=== PATIENT | male | born 1970 | race African-American/Black ===

== ENCOUNTER 2016-09-24 08:16 | Observation (INO) | payer SELFPAY ==
[~2016-09-24] VITALS: Ht 188 cm; Wt 124.0 kg
[~2016-09-24 08:16] MED LIST: AMOXICILLIN500 MG OR; AMOXIL500 MG OR; BACTRIM DS1 TAB OR; COZAAR50 MG OR; DEXILANT60 MG OR; DILAUDID 2MG2 MG/TA1 PO; DILTIAZEM240 MG PO; FLEXERIL5 MG PO; GABAPENTIN300 MG PO; GLIPIZIDE10 MG PO; GLIPIZIDE5 MG OR; GRALISE600 MG PO; LEVEMIR SC; LEVITRA10 MG OR; LOPRESSOR 550 MG/TAB PO; LOPRESSOR50 MG OR; LORTAB5 PO; METAN1 OR; METFORMIN1000 MG PO; METFORMIN500 MG PO; NAPROSYN500 MG PO; OPANA ER40 M1 PO; PERCOCET 5/325M1 TAB OR; PERCOCET1 TA5 PO; SYMBICORT1 AE1 IN; TESTIM1 % TD; TOFRANIL50 MG OR; TOPROL XL PO; ZESTRIL5 M1 OR; ZOCOR20 M1 PO; ZOCOR20 MG OR
[2016-09-24 09:05] LABS: HEMATOCRIT 43.1 % (39.0-50.0); HEMOGLOBIN 14.7 g/dl (14.0-18.0); IMMATURE GRANULOCYTES 0.2 % (0.0-1.0); MEAN CORPUSCULAR HGB 28.7 pG CALC (26.0-32.0); MEAN CORPUSCULAR HGB CONC 34.1 g/L CALC (32.0-36.0); NEUT# 3.67 thou/uL (1.82-7.42); RED BLOOD COUNT 5.13 mill/uL (4.70-6.10); RED CELL DISTRI WIDTH 13.2 % (11.5-15.5)
[2016-09-24 09:20] LABS: ALBUMIN 4.2 g/dL (3.2-5.0); ALKALINE PHOSPHATASE 72 u/l (38-126); ANION GAP 16 (6-22 (CALC)); BILIRUBIN, TOTAL 0.5 mg/dL (0.0-1.4); BUN 12 mg/dL (9-20); BUN/CREATININE RATIO 13 (12-20 (CALC)); CALCIUM 9.2 mg/dL (8.4-10.2); CARBON DIOXIDE 27 mmol/l (22-30); CHLORIDE 102 mmol/l (95-108); GFR > 60 ML/MIN (>=60 (CALC)); GFR FOR AFR.AMER. > 60 ML/MIN (>=60 (CALC)); GLUCOSE 138 mg/dL (75-110); SGOT/AST 23 u/l (17-59); SGPT/ALT 25 u/l (21-72); SODIUM 142 mmol/l (137-146); TOTAL PROTEIN 7.7 g/dL (6.3-8.2)
[2016-09-24 09:29] LABS: MYOGLOBIN 38 ng/mL (0 - 121)
[2016-09-24] MEDS ORDERED: LEVEMIR100 UNIT/M SC (09:57)
[2016-09-24 13:30] VITALS: BP 147/91
[2016-09-24 16:00] VITALS: BP 136/85
[2016-09-24] MEDS ORDERED: LOPRESSOR 550 MG/TAB PO (16:30)
[2016-09-24 18:58] VITALS: BP 147/84
[2016-09-24 23:30] VITALS: BP 132/82
[2016-09-25 04:12] VITALS: BP 148/88
[2016-09-25 07:40] VITALS: BP 134/68
[2016-09-25] MEDS ORDERED: ASPIRIN ADULT L81 M2 PO (10:16)
== END 2016-09-25 10:55 | disposition home or self-care (01) | DRG 311 ==
LOC: ENPENDDIS → ED 08:16 → ED-I 10:03 → ED 10:19 → MS2 10:20
PROVIDERS: Emergency Medicine; ADMIT Internal Medicine; ATTEND Internal Medicine
DX: I20.9 Angina pectoris, unspecified (principal); E11.40 Type 2 diabetes mellitus with diabetic neuropathy, unspecified; I10 Essential (primary) hypertension; E11.65 Type 2 diabetes mellitus with hyperglycemia; E78.5 Hyperlipidemia, unspecified; K21.9 Gastro-esophageal reflux disease without esophagitis; F17.290 Nicotine dependence, other tobacco product, uncomplicated; J45.909 Unspecified asthma, uncomplicated; Z79.4 Long term (current) use of insulin
CPT/HCPCS: G0378

== ENCOUNTER 2016-11-19 18:44 | Emergency (ER) | payer SELFPAY ==
[~2016-11-19] VITALS: Ht 188 cm; Wt 131.0 kg
[~2016-11-19 18:44] MED LIST changes: +ASPIRIN ADULT L81 M2 PO; +LEVEMIR100 UNIT/M SC
[2016-11-19 19:32] LABS: HEMATOCRIT 46.2 % (39.0-50.0); HEMOGLOBIN 15.9 g/dl (14.0-18.0); IMMATURE GRANULOCYTES 0.2 % (0.0-1.0); MEAN CELL VOLUME 82.1 fL CALC (80.0-100.0); MEAN CORPUSCULAR HGB 28.2 pG CALC (26.0-32.0); MEAN CORPUSCULAR HGB CONC 34.4 g/L CALC (32.0-36.0); NEUT# 4.18 thou/uL (1.82-7.42); RED BLOOD COUNT 5.63 mill/uL (4.70-6.10); RED CELL DISTRI WIDTH 13.5 % (11.5-15.5)
[2016-11-19 19:41] LABS: ALBUMIN 5.3 g/dL (3.2-5.0); ALKALINE PHOSPHATASE 75 u/l (38-126); ANION GAP 19 (6-22 (CALC)); BILIRUBIN, TOTAL 0.6 mg/dL (0.0-1.4); BUN 13 mg/dL (9-20); BUN/CREATININE RATIO 11 (12-20 (CALC)); CALCIUM 10.2 mg/dL (8.4-10.2); CARBON DIOXIDE 25 mmol/l (22-30); CHLORIDE 102 mmol/l (95-108); CREATININE 1.2 mg/dL (0.7-1.3); GFR > 60 ML/MIN (>=60 (CALC)); GFR FOR AFR.AMER. > 60 ML/MIN (>=60 (CALC)); GLUCOSE 86 mg/dL (75-110); POTASSIUM 4.1 mmol/l (3.5-5.1); SGOT/AST 26 u/l (17-59); SGPT/ALT 36 u/l (21-72); SODIUM 142 mmol/l (137-146); TOTAL PROTEIN 9.1 g/dL (6.3-8.2)
[2016-11-19 20:44] VITALS: BP 135/87
== END 2016-11-19 20:42 | DRG 935 ==
LOC: ED 18:44
PROVIDERS: Emergency Medicine
DX: T23.271A Burn of second degree of right wrist, initial encounter (principal); T22.112A Burn of first degree of left forearm, initial encounter; T24.232A Burn of second degree of left lower leg, initial encounter; T25.292A Burn of second degree of multiple sites of left ankle and foot, initial encounter; T25.111A Burn of first degree of right ankle, initial encounter; X10.2XXA Contact with fats and cooking oils, initial encounter; Y93.G3 Activity, cooking and baking; Y92.007 Garden or yard of unspecified non-institutional (private) residence as the place of occurrence of the external cause

== ENCOUNTER 2019-08-08 17:51 | Observation (INO) | payer MEDICARE ==
[~2019-08-08] VITALS: Ht 188 cm; Wt 127.0 kg
--- NOTE | 2019-08-08 17:51 | NUR ---
PATIENT TO ROOM VIA WHEELCHAIR AND PHYSICAIN AT BESIDE FOR EVAL
[2019-08-08 18:31] LABS: HEMATOCRIT 38.7 % (39.0-50.0); HEMOGLOBIN 13.1 g/dl (14.0-18.0); IMMATURE GRANULOCYTES 0.1 % (0.0-5.0); MEAN CELL VOLUME 84.5 fL CALC (80.0-100.0); MEAN CORPUSCULAR HGB 28.6 pG CALC (26.0-32.0); MEAN CORPUSCULAR HGB CONC 33.9 g/dL CAL (32.0-36.0); NEUT# 4.27 thou/uL (1.82-7.42); RED BLOOD COUNT 4.58 mill/uL (4.70-6.10); RED CELL DISTRI WIDTH 13.8 % (11.5-15.5)
[2019-08-08 18:49] LABS: ALKALINE PHOSPHATASE 62 u/l (38-126); AMYLASE 109 u/l (30-110); ANION GAP 11 (6-22 (CALC)); BILIRUBIN, TOTAL 0.4 mg/dL (0.0-1.4); BUN 14 mg/dL (9-20); BUN/CREATININE RATIO 15 (12-20 (CALC)); CARBON DIOXIDE 25 mmol/l (22-30); CHLORIDE 104 mmol/l (95-108); GFR > 60 ML/MIN (>=60 (CALC)); GFR FOR AFR.AMER. > 60 ML/MIN (>=60 (CALC)); LIPASE 128 u/l (23-300); POTASSIUM 3.9 mmol/l (3.5-5.1); SGOT/AST 28 u/l (17-59); SODIUM 136 mmol/l (137-146)
[2019-08-08 18:52] LABS: D-DIMER 0.2 mg/L (0.19-0.60); PROTHROMBIN TIME 10.5 SECONDS (9.0-12.5)
[2019-08-08 19:01] LABS: MYOGLOBIN 53 ng/mL (0 - 121)
--- NOTE | 2019-08-08 19:13 | NUR ---
MD AT BEDSIDE DISCUSSING POC AND RESULTS W/PT.
--- NOTE | 2019-08-08 19:21 | NUR ---
SBAR PRINTED TO FLOOR
--- NOTE | 2019-08-08 19:55 | NUR ---
ATTEMPT TO CALL REPORT NURSE UNAVAILABLE AT THIS TIME.
[2019-08-08] MEDS ORDERED: OXYCODONE HCL10 MG PO (20:01)
[2019-08-08] MEDS ORDERED: OXYCODONE20 MG PO (20:01)
--- NOTE | 2019-08-08 20:18 | NUR ---
REPORT CALLED TO NURSE ON [facility]. PT ON TELEMETRY. IV SITE HEALTHY. NO APPRANET DISTRESS. PT TO ROOM 268 VIA WC.
[2019-08-08 20:23] VITALS: BP 147/87
--- NOTE | 2019-08-08 20:45 | NUR ---
PT ASSESSMENT AND ADMISSION COMPLETED AT THIS TIME. NO S/O DISTRESS NOTED.
--- NOTE | 2019-08-08 21:33 | NUR ---
PT MEDICATED AT THIS TIME. NO S/O DISTRESS. PT IS AWAKE IN BED TALKING ON PHONE AND WATCHING TV. DENIES ANY OTHER NEEDS AT THIS TIME, ENCOURAGED TO CALL NEEDS ARISE.
--- NOTE | 2019-08-08 22:19 | NUR ---
PT ARRIVED TO THE MED SURG FLOOR VIA WC ACCOMPANIED BY ED NURSE. PT APPEARS TO BE IN STABLE CONDITION, DENIES PAIN/N/V OR SOB AT THIS TIME. PT IS ASKING FOR FOOD/PROVIDED AND PT ORIENTED TO CALL SYSTEM, ROOM, LIGHTS AND BED.
[2019-08-08 23:31] VITALS: BP 128/66
--- NOTE | 2019-08-09 02:15 | NUR ---
PT APPEARED TO BE SLEEPING, BUT UPON MY ENTERING ROOM HE ASKED TO TAKE A SHOWER, PT ASSISTED TO SHOWER AND BACK TO BED BY AIDS.
[2019-08-09 03:32] VITALS: BP 135/77
--- NOTE | 2019-08-09 07:05 | NUR ---
REPORT RECEIVED FROM CORINA DUARTE;PT APPEARS TO BE SLEEPING IN SEMI FOWLERS POSITION;NO S/S OF DISTRESS NOTED;RESPIRATIONS EVEN AND UNLABORED ON RA;TELE MONITORING IN PLACE;ALL SAFETY PRECAUTIONS IN PLACE WITH BED IN THE LOWEST POSITION AND CALL LIGHT IN REACH;WILL CONTINUE TO MONITOR
--- NOTE | 2019-08-09 08:20 | NUR ---
HOLD MORNING GLIPIZIDE AND METFORMIN FOR LOW BS OF 87 THIS MORNING PER CARISSA BROTHERS.
[2019-08-09] MEDS ORDERED: OXYCONTIN10 MG PO (08:30)
[2019-08-09] MEDS ORDERED: OXYCODONE10 M1 PO (08:31)
--- NOTE | 2019-08-09 08:40 | NUR ---
PT RESTING IN SEMI FOWLERS POSITION,A&O X3;VS OBTAINED AND ASSESSMENT COMPLETED;PT DENIES ANY CURRENT CHEST PAIN OR PRESSURE,PAIN SCALE AND REPORTING EDUCATED;RESPIRATIONS EVEN AND UNLABORED ON RA,CLEAR LUNG SOUNDS;ABDOMEN SOFT ON PALPATION AND ACTIVE IN ALL 4 QUADRANTS;STRONG PEDAL PULSES;SKIN INTACT;TELE MONITORING IN PLACE;#20G TO RAC FLUSHED AND PATENT,SITE APPEARS HEALTHY;PT DENIES ANY ADDITIONAL NEEDS AT THIS TIME AND IS ENCOURAGED TO CALL FOR ASSISTANCE IF NEEDED;FALL PRECAUTIONS IN PLACE WITH CALL LIGHT IN REACH;WILL CONTINUE TO MONITOR
[2019-08-09 08:44] VITALS: BP 143/77
[2019-08-09 10:20] LABS: CHOLESTEROL HDL RATIO 3.8 (<4.4 (CALC)); MAGNESIUM 1.8 mg/dL (1.6-2.3)
--- NOTE | 2019-08-09 10:37 | NUR ---
AT BEDSIDE DISCUSSING POC WITH PT INCLUDING PLANS TO D/C HOME.
[2019-08-09 11:00] VITALS: BP 134/67
--- NOTE | 2019-08-09 11:00 | NUR ---
PT RESTING IN SEMI FOWLERS POSITION;DENIES ANY CURRENT CHEST PAIN OR PRESSURE;RESPIRATIONS EVEN AND UNLABORED ON RA;TELE MONITORING IN PLACE;PT VERBALIZES UNDERSTANDING IN PLANS TO D/C HOME;PT TO BE D/C AFTER LUNCH;ENCOURAGED TO CALL FOR ASSISTANCE IF NEEDED;CALL LIGHT IN REACH;WILL CONTINUE TO MONITOR
--- NOTE | 2019-08-09 11:45 | NUR ---
ALL DISCHARGE INSTRUCTIONS PROVIDED AT THIS TIME;PT INSTRUCTED TO F/U WITH PCP,MONITOR BP AND BS;PT DENIES ANY QUESTIONS OR NEEDS;IV SITE REMOVED WITH CATHETER INTACT AND TELE MONITORING D/C;PT REFUSES WHEELCHAIR FOR D/C HOME;PT TO TRANSPORT SELF HOME.
--- NOTE | 2019-08-09 11:59 | NUR ---
Discharge instructions given. Patient verbalizes understanding of same. Discharged in stable condition via Ambulatory to Home with *Other. All belongings sent with pt. [facility] WITH MASK ON,PT TO TRANSPORT SELF HOME.
== END 2019-08-09 11:59 | disposition home or self-care (01) ==
LOC: ED 17:51 → ED-I 19:13 → ED 19:20 → ED-I 19:21 → MS2 19:21
PROVIDERS: Family Medicine; Nurse Practitioner Family; ADMIT Internal Medicine; ATTEND Internal Medicine
DX: R07.89 Other chest pain (principal); I10 Essential (primary) hypertension; E11.40 Type 2 diabetes mellitus with diabetic neuropathy, unspecified; E78.5 Hyperlipidemia, unspecified; G89.4 Chronic pain syndrome; E66.9 Obesity, unspecified; F17.290 Nicotine dependence, other tobacco product, uncomplicated; Z68.35 Body mass index [BMI] 35.0-35.9, adult; Z79.4 Long term (current) use of insulin
CPT/HCPCS: G0378

== ENCOUNTER 2020-01-25 20:38 | Emergency (ER) | payer MEDICARE ==
[~2020-01-25] VITALS: Ht 188 cm; Wt 124.5 kg
[~2020-01-25 20:38] MED LIST changes: +OXYCODONE HCL10 MG PO; +OXYCODONE10 M1 PO; +OXYCODONE20 MG PO; +OXYCONTIN10 MG PO
[2020-01-25] MEDS ORDERED: METOPROLOL TAR100 MG PO (21:28)
[2020-01-25] MEDS ORDERED: METFORMIN HCL1000 MG PO (21:28)
[2020-01-25] MEDS ORDERED: OXYCODONE20 MG PO (21:29)
[2020-01-25] MEDS ORDERED: PIOGLITAZONE HC30 MG PO (21:30)
[2020-01-25] MEDS ORDERED: NITROGLYCERIN0.4 MG SL (21:31)
[2020-01-25] MEDS ORDERED: HYZAAR1 TAB PO (21:31)
[2020-01-25] MEDS ORDERED: SIMVASTATIN40 MG PO (21:32)
[2020-01-25] MEDS ORDERED: OMEPRAZOLE DR20 MG PO (21:32)
[2020-01-25 22:06] VITALS: BP 164/91
== END 2020-01-25 21:55 | disposition home or self-care (01) ==
LOC: ED 20:38
DX: S50.812A Abrasion of left forearm, initial encounter (principal); E11.9 Type 2 diabetes mellitus without complications; I10 Essential (primary) hypertension; F17.290 Nicotine dependence, other tobacco product, uncomplicated; W20.8XXA Other cause of strike by thrown, projected or falling object, initial encounter; Y93.G3 Activity, cooking and baking; Y92.89 Other specified places as the place of occurrence of the external cause; Y99.0 Civilian activity done for income or pay; Z79.84 Long term (current) use of oral hypoglycemic drugs

== ENCOUNTER 2022-04-03 21:36 | Emergency (ER) | payer MEDICARE ==
[~2022-04-03] VITALS: Ht 188 cm; Wt 127.0 kg
[~2022-04-03 21:36] MED LIST changes: +CIPROFLOXACN500 MG PO; +HYZAAR1 TAB PO; +JANUVIA50 MG PO; +LEVEMIR FL100 UNIT/M SC; +METFORMIN HCL1000 MG PO; +METOPROLOL TAR100 MG PO; +METRONIDAZOLE500 MG PO; +NITROGLYCERIN0.4 MG SL; +OMEPRAZOLE DR20 MG PO; +PIOGLITAZONE HC30 MG PO; +SIMVASTATIN40 MG PO
[2022-04-03] MEDS ORDERED: LORTAB 1010 MG PO (22:06)
[2022-04-03] MEDS ORDERED: AMOXICILLIN500 MG PO (22:06)
[2022-04-03 22:12] VITALS: BP 142/91
== END 2022-04-03 22:19 | disposition home or self-care (01) ==
LOC: ED 21:36
DX: K04.7 Periapical abscess without sinus (principal); S02.5XXA Fracture of tooth (traumatic), initial encounter for closed fracture; I10 Essential (primary) hypertension; E11.9 Type 2 diabetes mellitus without complications; E78.5 Hyperlipidemia, unspecified; F17.200 Nicotine dependence, unspecified, uncomplicated; X58.XXXA Exposure to other specified factors, initial encounter; Z79.84 Long term (current) use of oral hypoglycemic drugs; Z79.4 Long term (current) use of insulin